=== PATIENT | female | born 1990 ===

== ENCOUNTER 2025-03-04 10:28 | Outpatient (AMB) | payer OTHER, SELFPAY ==
--- NOTE | 2025-03-04 10:40 | AM.OFFWIN_ITS ---
Intake Vital Signs 03/04/25 10:41 Height 5 ft 5 in Weight 315 lb BMI 52.4 BP 138/96 H Blood Pressure Location Lt brachial Position Sitting Pulse 93 Pulse Source Pulse Oximeter Temp 98.2 F Temp Source Oral Pulse Oximetry (%) 98 Oxygen Delivery Method Room Air Intake Visit Reasons: EP dizzy, nausea, headache, chest heavyness Intake Note: Pt presents to the office today for c/o dizziness,nausea,headache, and chest heaviness that started this morning. Patient Tobacco Use Status: Never used Tobacco Allergies No Known Drug Allergies Allergy (Mild, Verified 03/04/25 10:43) none HPI HPI Comments History of Present Illness Details History of Present Illness - The patient is a 34-year-old female pr esenting with dizziness, nausea and vomiting as well as a heavy chest sensation. - History reveals episodes of dizziness and heavy chest sensation, occurring two to four times per month since August. - Episodes are postprandial and not prec eded by illness or nausea, but immediate vomiting occurs after meals. - Onset of symptoms manifests within min utes following food consumption. - The patient experienced dizziness appr oximately 30 to 45 minutes after breakfast today, without vomiting. - Past testing for acid reflux was incon clusive. - She does not report abdominal pain, th ough describes alleviated pressure and stinging pain with cough localized to the back. Physical Exam General: Cooperative, healthy appearing, comfortable, no acute distress and well developed Orientation: Patient oriented x3 Limitations: No limitations Head: Normal to inspection Ears: Hearing grossly normal bilaterally Nose: Normal External nose present Face and sinus: Normal facial exam Eyes: Appearance normal, both eyes and all related structures Neck: Normal visual inspection and Yes full ROM Respiratory: Normal respiratory effort and able to speak in complete sentences. GI: soft, no ttp except for positive Gutierrez's Skin: No rashes or lesions noted Neuro: Patient oriented x3 Extremities: Normal to inspection [facility] Social History Patient Tobacco Use Status: Never used Tobacco Review of Systems Const All systems reviewed & are unremarkable except as noted in HPI and below Physical Exam Vital Signs: Last Vital Signs Temp 98.2 F 03/04/25 10:41 Pulse 93 03/04/25 10:41 BP 138/96 H 03/04/25 10:41 Pulse Ox 98 06/03/25 10:41 Oxygen Delivery Method Room Air 03/04/25 10:41 BMI result Body Mass Index 52.4 Assessment & Plan Assessment & Plan (1) Nausea and vomiting: Code(s): R11.2 - Nausea with vomiting, unspecified Qualifiers: Vomiting type: unspecified Qualified Code(s): R11.2 - Nausea with vomiting, unspecified Plan: The likely diagnosis of gallbladder disease necessitates imaging, such as an ultrasound or CT scan, to confirm cholecystitis or cholelithiasis. Prescribed ma nagement includes a low-fat diet to ease symptoms. Should imaging indicate a severe condition, cholecystectomy might be required. The emphasis was placed on seeking emergency care if symptoms worsen or chest pain develops, and the patient is encouraged to see her primary care physician for timely follow-up and comprehensive evaluation. She has an appt tomorrow. Patient was informed and verbally consented to the use of an ambient scribe for clinic note documentation during this visit. Coding Level of Care Code New Pt Level 3 (89955) Diagnoses Nausea and vomiting, unspecified vomiting type R11.2 Vomiting type: unspecified
[2025-03-04 10:41] VITALS: BP 138/96; PULSE 93; TEMP 36.8; O2SAT 98; BMI 52.4
--- OUTSIDE RECORDS SUMMARY | 2025-03-04 12:03 | XMS_ITS | Encounter Summary ---
Author Organization [facility] Address [address] [place] [address] Care Team Providers Care Basketball Commentator Name Role Phone Rolanda Morrison MD Primary Care Prov ider Reason for Visit * Reason Onset Date Comments Vomiting 03/03/2025 Encounter Details Date Type Department Care Team ([facility] st Contact Info) Description 03/03/2025 Telephone Adult Medicine [address] [phone] Rolanda Morrison MD [address] [place] [phone] Vomiting Social History Tobacco Use Types Packs/Day Years Used Date Smoking Tobacco: Never Smokeless Tobacco: Never Alcohol Use Standard Drinks/Week Comments Yes 0 (1 standard drink = 0.6 oz pur e alcohol) Comments Unknown Sex and Gender Information Value Date Recorded Sex Assigned at Not on file Legal Sex Female 5:02 PM EST Gender Identity Not on file Sexual Orientation Not on file documented as of this encounter Progress Notes * Tea Duran RN - 03/03/2025 4:11 PM EDT Called and spoke with pt. Pt sts so I have an eating disorder I have bulimia but since aug of last year there has been times were I'm vomiting involuntary after eating about 3-4 times a month no weight loss no dizziness and recently started with mid left abd pressure sts not pain.4/10. no fever pt sts nausea sometimes after eating. Pt having regular bms. Appt for Monday with pcp advised for any new or worsening sx or concerns to go to er for evaluation. * Andree Bravo - 03/03/2025 2:43 PM EDT Patient is returning your call please advise. Patient is at work and asked if you could call [phone] so she doesn't miss your call again. * Claribel Julian RN - 03/03/2025 2:27 PM EDT Left vm for pt to return my call. * Andree Bravo - 03/03/2025 1:27 PM EDT Patient call requires triage: Symptoms patient is presenting: Patient is calling in due to vomiting after she eats. She states its been going on since 10/2023 and getting worse. She has tried eating different diets and nothing hasbeen helping. She is not experiencing a pressure in left side of her stomach which is constantly there. When she clears her throat or coughs it feels like a stinging feeling. How long has patient had these symptoms?: 8 months For ALL patients calling to schedule any appointment (routine, sick visit, follow up, consult, etc.) in the outpatient setting please ask the following questions: Do you have fever of higher than 101, sore throat with difficulty swallowing or severe shortness ofbreath? no If YES to any of these above symptoms, send a message to triage and do not book. Red dot. If no, an audio or video visit should be booked. Have you had close contact with someone with Coronavirus in the last 14 days? no Have you traveled abroad? no Have you traveled recently to another state outside of [place], [place], [place], [place], [place], [place], [place]? no o If yes, did you quarantine for 14 days or have a negative covid test? no If yes to any of the above, patient is not to be scheduled in office until after 14 day quarantine or negative covid test. If pain or injury related was it due to an accident at work or from a motor vehicle accident? If yes, date of accident/Injury: No If yes, gather 3rd alliance party insurance information Third Green Party Information: not applicable PCP: Rolanda Elder MD Payor: / No coverage found. documented in this encounter Plan of Treatment Upcoming Encounters Date Type Department Care Team (Late st Contact Info) Description 03/05/2025 8:00 AM EDT Office Visit Adult Medicine [address] [phone] Rolanda Morrison MD [address] [place] [phone] documented as of this encounter Visit Diagnoses Not on filedocumented in this encounter Care Teams Basketball Commentator Relationship Specialty Start Date End Date Rolanda Morrison MD PCP - General Internal Medicine 05/31/22 documented as of this encounter
== END 2025-03-04 11:26 | disposition home or self-care (01) ==
PROVIDERS: Visit Provider Physician Assistant
DX: R11.2 Nausea with vomiting, unspecified (principal)

== ENCOUNTER → 2025-03-04 10:28 | Outpatient (BNVA) | payer OTHER, SELFPAY | PROVIDERS: Visit Provider Physician Assistant ==